=== PATIENT | female | born 1940 | race Caucasian/White ===

== ENCOUNTER 2018-05-06 12:08 | Observation (INO) | payer MEDICARE, OTHER ==
[2018-05-06 13:18] LABS: ADD MAN DIFF? NO
[2018-05-06 13:20] LABS: BASOPHILS % 0.2 % (0.0-2.0); EOSINOPHILS # 0.1 10^3/ul (0.0-0.5); EOSINOPHILS % 0.6 % (0.0-7.0); HEMOGLOBIN 12.8 g/dl (12.0-16.0); LYMPHOCYTES # 0.9 10^3/ul (0.8-2.9); LYMPHOCYTES % 9.1 % (15.0-51.0); MEAN CORPUSCULAR HEMOGLOBIN 27.1 pg (29.0-33.0); MEAN CORPUSCULAR VOLUME 84.7 fl (82.0-101.0); MEAN PLATELET VOLUME 9.5 fl (7.4-10.4); MONOCYTE # 0.6 10^3/ul (0.3-0.9); MONOCYTES % 5.4 % (0.0-11.0); NEUTROPHIL # 8.7 10^3/ul (1.6-7.5); NEUTROPHILS % 83.9 % (39.0-77.0); PLATELET COUNT 316 10^3/UL (140-415); RED BLOOD COUNT 4.72 10^6/ul (4.20-5.40); RED CELL DISTRIBUTION WIDTH 14.3 % (11.5-14.5)
[2018-05-06 13:20] LABS: WHITE BLOOD COUNT 10.4 10^3/ul (4.8-10.8)
[2018-05-06 13:36] LABS: ALANINE AMINOTRANSFERASE 20 IU/L (13-69); ALBUMIN 4.4 g/dl (3.3-4.9); ALBUMIN/GLOBULIN RATIO 1.37; ALKALINE PHOSPHATASE 91 IU/L (42-121); ANION GAP 13 (5-13); ASPARTATE AMINO TRANSFERASE 24 IU/L (15-46); BILIRUBIN,INDIRECT 0.5 mg/dl (0-1.1); BILIRUBIN,TOTAL 0.5 mg/dl (0.2-1.3); BLOOD UREA NITROGEN 22 mg/dl (7-20); CALCIUM 10.5 mg/dl (8.4-10.2); CARBON DIOXIDE 31 mmol/L (21-31); CHLORIDE 96 mmol/L (97-110); CREATININE 0.88 mg/dl (0.44-1.00); GLUCOSE 118 mg/dl (70-220); LIPASE 24 U/L (23-300); POTASSIUM 4.2 mmol/L (3.5-5.1); SODIUM 140 mmol/L (135-144); TOTAL PROTEIN 7.6 g/dl (6.1-8.1)
[2018-05-06 13:44] LABS: URINE BLOOD (Dip) POC Trace-intact (NEGATIVE); URINE GLUCOSE (Dip) POC Negative (NEGATIVE); URINE KETONES (Dip) POC 1+ (NEGATIVE); URINE LEUKOCYTE EST (Dip) POC Negative (NEGATIVE); URINE NITRITE (Dip) POC Negative (NEGATIVE); URINE TOTAL PROTEIN POC Negative (NEGATIVE)
[2018-05-06 13:44] LABS: URINE PH (Dip) POC 5.5 (5.0-8.5)
[2018-05-06] MEDS: SOD CHLORIDE 0.9% 500 ML IV (14:29)
[2018-05-06] MEDS ORDERED: NACL 0.9% 3 ML SYG IV (18:30)
[2018-05-06] MEDS ORDERED: ZOLPIDEM 5 MG TAB PO (18:30)
[2018-05-06] MEDS ORDERED: GLUCOSE GEL 15 GRAM TUBE PO ×2 (20:00)
[2018-05-06] MEDS ORDERED: DEXTROSE 50% 50 ML SYRINGE IV ×2 (20:00)
[2018-05-06] MEDS ORDERED: GLUCAGON 1 MG INJ IM (20:00)
[2018-05-06] MEDS ORDERED: GLUCOSE GEL 15 GRAM TUBE BUCCAL (20:00)
[2018-05-06] MEDS: ATORVASTATIN 20 MG TAB PO (21:00)
[2018-05-06] MEDS: ACCU-CHEK XX (21:08)
[2018-05-06] MEDS: APIXABAN 5 MG TABLET PO (21:27)
[2018-05-07] MEDS: PANTOPRAZOLE (EC) 40 MG TAB PO (05:42)
[2018-05-07] MEDS: ACCU-CHEK XX ×4 (08:19→21:00)
[2018-05-07] MEDS ORDERED: DILTIAZEM (CD) 120 MG CAP PO (09:00)
[2018-05-07] MEDS: ASPIRIN 81 MG TAB PO (09:10)
[2018-05-07] MEDS: ACETAMINOPHEN 325 MG TAB PO (09:10)
[2018-05-07] MEDS: GLIMEPIRIDE 4 MG TAB PO (09:10)
[2018-05-07] MEDS: ONDANSETRON 4 MG INJ IV (09:10)
[2018-05-07] MEDS: APIXABAN 5 MG TABLET PO ×2 (09:10→21:00)
[2018-05-07] MEDS: DILTIAZEM (CD) 120 MG CAP PO (09:12)
[2018-05-07 09:26] LABS: HEMOGLOBIN A1C 7.3 % (0-5.9)
[2018-05-07] MEDS: INSULIN GLARGINE [LANtus] 3 ML PEN SC (09:27)
[2018-05-07] MEDS: MECLIZINE 12.5 MG TAB PO ×4 (15:03→23:01)
[2018-05-07] MEDS: INSULIN ASPART [NOVOLOG] 3 ML PEN SC ×2 (17:26→22:01)
[2018-05-07] MEDS: ATORVASTATIN 20 MG TAB PO (20:39)
[2018-05-08] MEDS: ACCU-CHEK XX ×3 (01:36→11:58)
[2018-05-08] MEDS: PANTOPRAZOLE (EC) 40 MG TAB PO (05:11)
[2018-05-08] MEDS: GLIMEPIRIDE 4 MG TAB PO (07:55)
[2018-05-08] MEDS: INSULIN ASPART [NOVOLOG] 3 ML PEN SC ×2 (07:55→12:02)
[2018-05-08] MEDS: INSULIN GLARGINE [LANtus] 3 ML PEN SC (09:00)
[2018-05-08] MEDS: MECLIZINE 12.5 MG TAB PO ×2 (09:00→12:03)
[2018-05-08] MEDS: APIXABAN 5 MG TABLET PO (09:00)
[2018-05-08] MEDS: METOPROLOL (XL) 25 MG TAB PO (09:00)
[2018-05-08] MEDS: ASPIRIN 81 MG TAB PO (09:52)
== END 2018-05-08 13:46 | disposition home or self-care (01) ==
LOC: E/R 12:08 → TEL 15:25
DX: H81.10 Benign paroxysmal vertigo, unspecified ear (principal); I48.2 Chronic atrial fibrillation; I25.10 Atherosclerotic heart disease of native coronary artery without angina pectoris; Z95.5 Presence of coronary angioplasty implant and graft; I10 Essential (primary) hypertension; E11.9 Type 2 diabetes mellitus without complications; Z86.73 Personal history of transient ischemic attack (TIA), and cerebral infarction without residual deficits; Z79.82 Long term (current) use of aspirin; Z79.4 Long term (current) use of insulin; Z79.02 Long term (current) use of antithrombotics/antiplatelets; Z23 Encounter for immunization; R53.1 Weakness
CPT/HCPCS: 36415; 70450; 70551; 80053; 81003; 82962; 83036; 83690; 85025; 90686; 92610; 93005; 93306; 96360; 97162; 99285-25; G0378